=== PATIENT | female | born 1995 | race Two or more races ===

== ENCOUNTER 2019-06-07 11:12 | Emergency (ER) | payer MEDICAID, OTHER ==
[~2019-06-07] VITALS: Ht 152.4 cm; Wt 80.7 kg
[2019-06-07 13:50] VITALS: BP 130/76
== END 2019-06-07 14:46 | disposition home or self-care (01) ==
LOC: ER 11:12
DX: H66.91 Otitis media, unspecified, right ear (principal)

== ENCOUNTER 2020-02-02 11:29 | Emergency (ER) | payer MEDICAID ==
[~2020-02-02] VITALS: Ht 152.4 cm; Wt 85.0 kg
[2020-02-02 12:16] LABS: Urine Bacteria NONE SEEN /hpf (None Seen); Urine Blood Negative /uL (Negative); Urine Specific Gravity 1.015 (1.001-1.035); Urine WBC <1 /hpf (0 - 5)
[2020-02-02 14:30] VITALS: BP 134/97
== END 2020-02-02 14:40 | disposition home or self-care (01) ==
LOC: ER 11:29
DX: R10.32 Left lower quadrant pain (principal)
CPT/HCPCS: 74176; 81001; 81025